=== PATIENT | male | born 1980 | race Caucasian/White ===

== ENCOUNTER 2020-11-25 08:05 | Outpatient (CLI) | payer OTHER, SELFPAY ==
--- NOTE | ~2020-11-25 | XR_ITS ---
EXAMINATION: XR wrist LT min 3V DATE: 11/25/2020 08:26 INDICATION: Osteoarthritis at the left wrist with prior internal fixation of an old fracture. TECHNIQUE: Posteroanterior, ulnar deviation, oblique, and lateral views of the left wrist were obtain ed. COMPARISON: 01/17/2015 FINDINGS: Old healed distal left radial fracture with volar T plate and screw fixation. Chronic nonunited ulnar styloid avulsion fracture. No acute fracture. Interval progression of now mild to moderate osteoarth ritis at the radioscaphoid articulation. No significant interval change in additional mild polyarticu lar osteoarthritis at the distal radioulnar, midcarpal, triscaphe and first carpal metacarpal joints. IMPRESSION: 1. 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 2. Volar T plate and screw fixation of an old healed distal left radial fracture. 3. Chronic nonunited ulnar styloid avulsion fracture. Reviewed, dictated and finalized at location A. IMPRESSION: 1. 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 2. Volar T plate and screw fixation of an old healed distal left radial fractur e. 3. Chronic nonunited ulnar styloid avulsion fracture.
== END 2020-11-25 08:06 | disposition home or self-care (01) ==
PROVIDERS: PCP Family Medicine; Visit Provider Plastic Surgery
DX: S52.612A Displaced fracture of left ulna styloid process, initial encounter for closed fracture (principal); M19.032 Primary osteoarthritis, left wrist
CPT/HCPCS: 73110

== ENCOUNTER 2024-08-14 00:43 | Day surgery (SDC) | payer OTHER, SELFPAY ==
[2024-07-28 15:08] VITALS: BMI 26.3
--- OUTSIDE RECORDS SUMMARY | 2024-08-14 00:49 | XMS_ITS | Encounter Summary ---
Author Organization [facility] Healthcare Address [address] [place] [address] Care Team Providers Care Superintendent Nonselling Name Role Phone Ricardo Lagos MD Primary Care Provider [phone] Encounter Details Date Type Department Care Team (Late st Contact Info) Description 01/30/2021 Telephone [facility] Radiology [address] [place] [address] Catarino Orlando MD [address] [place] [address] Social History Tobacco Use Types Packs/Day Years Used Date Smoking Tobacco: Never Assessed Sex and Gender Information Value Date Recorded Sex Assigned at Not on file Legal Sex Male 4:09 PM CDT Gender Identity Male 03/10/2021 4:43 PM CDT Sexual Orientation Straight 03/10/2021 4: 43 PM CDT documented as of this encounter Plan of Treatment Not on file documented as of this encounter Visit Diagnoses Not on filedocumented in this encounter Care Teams Superintendent Nonselling Relationship Specialty Start Date End Date Ricardo Lagos MD PCP - General 01/31/21 documented as of this encounter
--- OUTSIDE RECORDS SUMMARY | 2024-08-14 00:49 | XMS_ITS | Continuity of Care Document ---
Author Organization [facility] Address [address] [place] [address] Phone Care Team Providers Care Information Coordinator Name Role Phone Diana CORREA Simona Unavailable Unavailable Procedures Procedure Date Progress Note Therapeutic Activities Neuromuscular Re-Ed Therapeutic Exercise Therapeutic Activities Hot or Cold Pack Therapeutic Exercise Neuromuscular Re-Ed Therapeutic Activities Neuromuscular Re-Ed Therapeutic Exercise Hot or Cold Pack Therapeutic Exercise Neuromuscular Re-Ed Therapeutic Activities Therapeutic Exercise Neuromuscular Re-Ed Therapeutic Activities Hot or Cold Pack Hot or Cold Pack Manual Therapy Neuromuscular Re-Ed Therapeutic Activities Hot or Cold Pack Neuromuscular Re-Ed Therapeutic Activities Therapeutic Activities Neuromuscular Re-Ed Therapeutic Exercise Therapeutic Activities Neuromuscular Re-Ed Manual Therapy Therapeutic Activities Neuromuscular Re-Ed Manual Therapy Therapeutic Activities Neuromuscular Re-Ed Therapeutic Exercise Therapeutic Exercise Neuromuscular Re-Ed Therapeutic Activities Orthotic Mgmt And Training Subsequent En counter Neuromuscular Re-Ed Therapeutic Activities OT Evaluation Low Complexity Therapeutic Activities Wrist Immobilization Orthotic Mgmt and Training Therapeutic Exercise Advance Directives Directive Yes / No Effective Date File Name No Information Encounters Encounter Description Practice Location Reason(s) For Visit Diagnoses Date Provider Providers Copied on Encounter [facility], [place], [place], [id number], tel:[phone] [place] No Information Feb-2 2 Diana Jarvis. . [facility], [place], [place], [id number], tel:[phone] [place] No Information Feb-2 - 2 Diana Jarvis. . Referring Provider: Bilyl Taylor, [address], [place], [address]. tel:[phone] [facility] [address], [place], [place], [id number], [place] tel:[phone] [place] No Information Feb-0 2 Diana Jarvis. . Referring Provider: Billy Taylor, [address], [place], [address]. tel:[phone] [facility] [address], [place], [place], [id number], [place] tel:[phone] [place] No Information Feb-0 2- 2 Marjorie Lyn. . Referring Provider: Billy Taylor, [address], [place], [address]. tel:[phone] [facility], [place], [place], [id number], [place] tel:[phone] [place] No Information 2 Harig Simona. . Referring Provider: Constance Elena [address], [place], [address]. tel:[phone] [address], [place], [place], [id number], [place] tel:[phone] [place] No Information 2 Harig Simona. . Referring Provider: Billy Taylor, Constance [address], [place], [address]. tel:[phone] [address], [place], [place], [id number], [place] tel:[phone] [place] No Information 2 Harig Simona. . Referring Provider: Constance Elena [address], [place], [address]. tel:[phone], [place], [place], [id number], [place] tel:[phone] [place] No Information 2 Harig Simona. . Referring Provider: Billy Taylor, Constance [address], [place], [address]. tel:[phone] [address], [place], [place], [id number], [place] tel:[phone] [place] No Information 2 Harig Simona. . Referring Provider: Constance Elena [address], [place], [address]. tel:[phone] [address], [place], [place], [id number], [place] tel:[phone] [place] No Information 2 Harig Simona. . Referring Provider: Constance Elena [address], [place], [address]. tel:[phone] [facility], [address] [place] [address] [address], [place], [place], [id number], tel:[phone] [place] No Information 2 Harig Simona. . Referring Provider: Billy Taylor, Constance [address], [place], [address]. tel:[phone] [address] [address], [place], [id number], [place] tel:[phone] [place] No Information 2 Harig Simona. . Referring Provider: Constance Elena [address], [place], [address]. tel:[phone] [address] [address], [place], [place], [id number], tel:[phone] [place] No Information 1 Harig Simona. . Referring Provider: Billy Taylor, Constance [address], [place], [address]. tel:[phone] [address] [address], [place], [place], [address], tel:[phone] [place] No Information 1 Harig Simona. . Referring Provider: Constance Elena [address], [place], [address]. tel:[phone] [address] [address], [place], [place], [address], [place] tel:[phone] [place] No Information 1 Harig Simona. . Referring Provider: Constance Elena [address], [place], [address]. tel:[phone] Family History Family Member Type Diagnosis Age At Onset No Information Payers Payer name Insurance type Covered alliance party ID Per amado(s) [facility] [id number] Social History Type Description Quantity Date Captured Comments Sex Male Smoking Status No Information Chief Complaint And Reason For Visit No Information Reason For Referral Reason For Referral No Information Plan Of Treatment Date Type Action Status Goal Tobacco Cessation Counseling completed Goal Tobacco cessation counseling completed History Of Present Illness Encounter Date Complaint History Of Prese nt Illness No Information Functional Status Date Functional Assessmen t No Information Instructions Date Instruction Additional Infor mation Dietary needs education Related to Overweight Prescribed activity/exercise edu cation Related to Overweight Assessments Type Assessment Date No Information Patient Care Teams Name Effective Dates (start - stop) Status Members No Information
--- OUTSIDE RECORDS SUMMARY | 2024-08-14 00:49 | XMS_ITS | Referral Summary ---
Author Organization [facility] al Address [address] [place] [address] Care Team Providers Care Manager In Training Name Role Phone Ricardo Lagos MD Primary Care Provider [phone] Allergies No known active allergies Medications cetirizine (ZyrTEC) 10 mg capsuleIndicati ons:Seasonal Allergic Rhinitis Take 10 mg by mouth every morning Active POTASSIUM ORAL Take 1 Dose by mouth every morning Active Active Problems Problem Noted Date Diagnosed Date Retained orthopedic hardware 03/12/2021 Overview (03/12/2021): Added automatically from request for surgery [id number] Social History Tobacco Use Types Packs/Day Years Used Date Smoking Tobacco: Every Day Cigarettes Started: 1999 Smokeless Tobacco: Never AUDIT-C Answer Date Recorded Q1: How often do you have a drink containing alc ohol? Monthly or less 06/12/2021 Q2: How many drinks containi ng alcohol do you have on a typical day when you are drinking? 1 or 2 06/12/2021 Frequency of Binge Drinking Not on file 03/2021 Sex and Gender Information Value Date Recorded Sex Assigned at Not on file Legal Sex Male 4:09 PM CDT Gender Identity Male 03/10/2021 4:43 PM CDT Sexual Orientation Straight 03/10/2021 4: 43 PM CDT Last Filed Vital Signs Vital Sign Reading Time Taken Comments Blood Pressure 99/66 06/18/2021 12:20 PM BARBER OR BEAUTY SHOP MANAGER Pulse 58 06/18/2021 12:20 PM BARBER OR BEAUTY SHOP MANAGER Temperature 36.3 C (97.3 F) 06/18/2021 11:22 AM BARBER OR BEAUTY SHOP MANAGER Respiratory Rate 14 06/18/2021 12:20 PM BARBER OR BEAUTY SHOP MANAGER Oxygen Saturation 96% 06/18/2021 12:20 PM BARBER OR BEAUTY SHOP MANAGER Inhaled Oxygen Concentration - - Weight 95.3 kg (210 lb) 06/18/2021 7:51 AM BARBER OR BEAUTY SHOP MANAGER Height 190.5 cm (6' 3 ) 06/18/2021 7:51 AM BARBER OR BEAUTY SHOP MANAGER Body Mass Index 26.25 06/18/2021 7:51 AM BARBER OR BEAUTY SHOP MANAGER Plan of Treatment Not on file Medical Devices Explanted Type Area Equal Opportunity Counselor Device Identifier Shelf Expiration Date Model / Serial / Lot Screws Explanted:Qty: 9 on 06/18/2021 by Billy Taylor MD at [facility] Left: Wrist Other Plate Explanted:Qty: 1 on 06/18/2021 by Billy Taylor MD at [facility] Left: Wrist Other Insurance [facility] H[facility]/PPO Address: [facility] [address] [place] [address] [facility] CHO[facility] HMO/PPO Address: [facility] [address] [place] [address] Care Teams Manager In Training Relationship Specialty Start Date End Date Ricardo Lagos MD PCP - General 01/31/21
--- OUTSIDE RECORDS SUMMARY | 2024-08-14 00:49 | XMS_ITS | Clinical Summary ---
Author Organization [facility] Address [address] [place] [address] Care Team Providers Care Research And Development Technician Name Role Phone Álvaro Musa DO Primary Care Provider Social History Tobacco Use Types Packs/Day Years Used Date Smoking Tobacco: Never Assessed Sex and Gender Information Value Date Recorded Sex Assigned at Not on file Legal Sex Male 7:03 PM CDT Gender Identity Not on file Sexual Orientation Not on file Plan of Treatment Health Maintenance Due Date Last Done Comments Annual Physical 11/26/1982 Hepatitis C 11/26/1997 DTaP, Tdap and Td Vaccines ( 1 - Tdap) 11/26/1998 Hepatitis B Vaccines (1 of 3 - 19+ 3-dose series) 11/26/1998 COVID-19 Vaccine (2023-2 5 season) 2024 Influenza Adult (#1) 2024 HPV Vaccines Aged Out No longer eligi ble based on patient's age to complete this topic Meningococcal B Vaccine Aged Out No l onger eligible based on patient's age to complete this topic Meningococcal Vaccine Aged Out No manohar duncan eligible based on patient's age to complete this topic Pneumococcal Vaccine: Pediat rics (0 to 5 Years) and At-Risk Patients (6 to 64 Years) Aged Out No longer eligible b ased on patient's age to complete this topic RSV Immunizations Under 20 Months Aged Out No longer eligible based on patient's age to complete this topic Care Teams Research And Development Technician Relationship Specialty Start Date End Date Álvaro Musa DO PCP - General 11/25/11
--- OUTSIDE RECORDS SUMMARY | 2024-08-14 00:49 | XMS_ITS | Continuity of Care Document ---
Author Organization [facility] Address [address] [place] [address] Phone Care Team Providers Care Bookkeeper Name Role Phone Duke OD, Amy Unavailable Unavailable Allergies, Adverse Reactions, Alerts Substance Reaction Status Criticality No Known Allergies Active No Inform ation Medications Medication Instructions Dosage Effective Dates (start - stop) Status Comments prednisolone 1 %-gatifloxacin 0.5 %-bromfenac 0.075 % eye drops,suspen instill 1 drop in operative eye TID starting 4 hours after surgery and continue for the first 2 weeks - Active 4ml replace acetate with phosphate . Lasik OU 09/15/2019 Emergen-C Electro Mix 408 mg-100 mg-120 mg-2 mg oral powder packet - Active 99 mg Zyrtec 10 mg capsule - Active Procedures Procedure Date POSTOP FOLLOW-UP VISIT OFFICE/OUTPATIENT VISIT, NEW OPHTHALMIC BIOMETRY OPHTHALMIC BIOMETRY PHARMACY 2 EYES Advance Directives Directive Yes / No Effective Date File Name No Information Encounters Encounter Description Practice Location Reason(s) For Visit Diagnoses Date Provider Providers Copied on Encounter [facility], [id number] [place] [address] [address], [place], [place], [id number], [place] tel:[phone] OPH CONSULT EMILIANO REID Post-Op (chief complaint) Other specified postprocedural states November-0 5- 0 Duke Bradleyin. [address], [place], [address], [place]. tel:[phone] Referring Provider: Ricardo Weaver, [address], [place], [address]. tel:[phone] OFFICE/OUTPA TIENT VISIT, [facility], [address], [place], [place], [id number], [place] tel:[phone] OPH CONSULT EMILIANO REID lasik eval (chief complaint) Keratoconjunct sicca, not specified as Sjogren's, bilateralPoste rior subcapsular polar age-related cataract, bilateralSquam ous blepharitis right upper eyelidSquamous blepharitis right lower eyelidSquamous blepharitis left upper eyelidSquamous blepharitis left lower eyelidOther vitreous opacities, bilateral 0 Leland Mehta. [address] [facility], [place], [place], [id number] , [place]. tel:[phone] Referring Provider: Ricardo Weaver, [address], [place], [address]. tel:[phone] Family History Family Member Type Diagnosis Age At Onset Maternal grandmother Problem (finding) Macular degener ation Maternal grandmother Problem (finding) Diabetes mellit us Payers Payer name Insurance type Covered constitution party ID Authoriza tion(s) No Information Social History Type Description Quantity Date Captured Comments Sex Male Smoking Status No Information Chief Complaint And Reason For Visit From encounter dated '11/07/2019 09:40'. Post-Op (chief complaint). Description: Additional information: pt happy with vision. currently using AT 2-3x daily. pt states eyes do not feel dry but c/o watery eyes. Plan Of Treatment Date Type Action Status No Information History Of Present Illness Encounter Date Complaint History Of Prese nt Illness Post-Op Additional infor mation: pt happy with vision. currently using AT 2-3x daily. pt states eyes do not feel dry but c/o watery eyes. lasik eval The 38 year old male presents for evaluation of lasik eval in the right eye and left eye. It started about 1 year(s) ago. The symptom is constant. The condition is significant. The pt is wanting to see if he is a candidate for Lasik. SCL wearer, removed SCL last night. Tends to sleep in SCL, replaces every 2-3 weeks. Ref by Rakel Pink Instructions Date Instruction Additional Infor liseth Impression/Plan Related to Other specified postprocedural states Impression/Plan Related to Kerat oconjunct sicca, not specified as Sjogren's, bilateral Impression/Plan Related to Other vitreous opacities, bilateral Impression/Plan Related to Squam ous blepharitis right upper eyelid Impression/Plan Related to Squam ous blepharitis left lower eyelid Impression/Plan Related to Squam ous blepharitis left upper eyelid Impression/Plan Related to Squam ous blepharitis right lower eyelid Impression/Plan Related to Poste rior subcapsular polar age-related cataract, bilateral Assessments Type Assessment Date assessment Other specified postprocedural s vincenzo
--- OUTSIDE RECORDS SUMMARY | 2024-08-14 00:49 | XMS_ITS | Clinical Summary ---
Author Organization [facility] Address [address] [place] [address] Care Team Providers Care Seam Checker Name Role Phone Ricardo Lagos MD Primary Care Provider [phone] Allergies No known active allergies Medications cetirizine (ZyrTEC) 10 mg capsuleIndicati ons:Seasonal Allergic Rhinitis Take 10 mg by mouth every morning Active POTASSIUM ORAL Take 1 Dose by mouth every morning Active Active Problems Problem Noted Date Diagnosed Date Retained orthopedic hardware 03/12/2021 Overview (03/12/2021): Added automatically from request for surgery [id number] Surgical History Surgery Date Site/Laterality Comments WRIST FRACTURE SURGERY 07/05/2011 - 07/04/2012 Left x2 MENISCUS SURGERY 07/05/1994 - 07/04/1995 Right HEMORROIDECTOMY GANGLION CYST EXCISION multiple Social History Tobacco Use Types Packs/Day Years [...] Orientation Straight 03/10/2021 4: 43 PM CDT Obstetrics History Last Filed Vital Signs Vital Sign Reading Time Taken Comments Blood Pressure 99/66 06/18/2021 12:20 PM POULTRY BARN MANAGER Pulse 58 06/18/2021 12:20 PM POULTRY BARN MANAGER Temperature 36.3 C (97.3 F) 06/18/2021 11:22 AM POULTRY BARN MANAGER Respiratory Rate 14 06/18/2021 12:20 PM POULTRY BARN MANAGER Oxygen Saturation 96% 06/18/2021 12:20 PM POULTRY BARN MANAGER Inhaled Oxygen Concentration - - Weight 95.3 kg (210 lb) 06/18/2021 7:51 AM POULTRY BARN MANAGER Height 190.5 cm (6' 3 ) 06/18/2021 7:51 AM POULTRY BARN MANAGER Body Mass Index 26.25 06/18/2021 7:51 AM POULTRY BARN MANAGER Plan of Treatment Not on file Medical Devices Explanted Type Area Weight Reducing Technician Device Identifier Shelf Expiration Date Model / Serial / Lot Screws Explanted:Qty: 9 on 06/18/2021 by Billy Taylor MD at [facility] Left: Wrist Other Plate Explanted:Qty: 1 on 06/18/2021 by Billy Taylor MD at [facility] Medicine Left: Wrist Other Insurance [facility] CHOICE PLUS [facility] CHOICE PLUS Care Teams Seam Checker Relationship Specialty Start Date End Date Ricardo Lagos MD PCP - General 01/31/21
[2024-08-14 12:00] VITALS: BP 108/68; PULSE 88; RESP 20; TEMP 36.2; O2SAT 98; BMI 25.9
--- NOTE | 2024-08-14 12:12 | P.PNAN_ITS ---
Anes - Initial Pre Proc Eval Procedure: Operation Date: 08/14/24 13:30 Proposed Procedures p Colonoscopy - Jose Luis Peña MD Date/Time: 08/14/24 12:12 Surgeon: Jose Luis Peña MD Pre Op Diagnosis: Melena,Anal fissure,hemorrhoids Patient Data Age: 43 Gender: M Height: 1.91 m Weight: 94.1 kg Last Vital Signs Temp 97.1 F L 08/14/24 12:00 Pulse 88 08/14/24 12:00 Resp 20 08/14/24 12:00 BP 108/68 08/14/24 12:00 Pulse Ox 98 08/14/24 12:00 O2 Del Method Room Air 08/14/24 12:00 Allergies Allergy/AdvReac Type Severity Reaction Status Date / Time No Known Allergies Allergy Verified 08/14/24 12:07 Home Medications ?Medication ?Instructions ?Recorded ?Confirmed ?Type cetirizine 10 mg capsule (Wal-Zyr 10 mg PO DAILY PRN allergies 12/31/20 08/14/24 History (cetirizine)) Patient hx anesthesia problems: none Family hx anesthesia problems: none Results Review: All pre-operative results and documents have been reviewed as part of the pre- operative evaluation. [facility] Past Medical History Medical History Hematochezia Screening for prostate cancer Screening for lipid disorders Anal fissure BMI 28.0-28.9,adult Left forearm pain Surgical History Surgical History H/O wrist surgery 2011, left wrist ORIF History of surgical removal of ganglion cyst 1996 and 2008 Family History Family History Grandparent Hypertension Diabetes mellitus Social History Social History Smoking packs per day: 1.5 Smoking cigarettes per day: 30.0 Years smoked: 25 Smoking pack-years: 37.50 Smoking status: Current every day smoker Tobacco type: cigarettes Second hand tobacco smoke exposure: No Alcohol intake: current Alcohol use details: a few drinks a month Substance use: never Substance use type: does not use Living arrangements: with family Occupation/Education: occupation Additional occupation/education comments: [employer] Gender identity (if verbalized by the patient): Male Spiritual care concerns: No Anes - Eval Final PreProcedure Day of Procedure 08/14/24 12:12 Patient weight: overweight Lungs: normal air movement Airway: Mallampati scale class II Neurological: alert and oriented Last oral intake: >/= 8 hours ASA classification: II Emergent: no Anesthetic plan: proceed Anesthesia type and monitoring: general GIVS and standard monitoring Results Review: All pre-operative results and documents have been reviewed as part of the pre- operative evaluation. Smoker, 1.5 ppd for 15 years, smoked this am. Informed Consent: The patient's anesthetic plan and its attendant risks and benefits were discussed with the patient/family/POA. Questions were solicited and answers provided to the satisfaction of the patient/family/POA.
[2024-08-14] MEDS: LACTATED RINGERS 1,000 ML 150 ML IV CONT (12:18)
--- NOTE | 2024-08-14 12:53 | P.HP_ITS ---
History of Present Illness History of Present Illness Consent: Risks, benefits, and alternatives have been discussed and questions answered. Patient agrees to proceed with procedure. Chief complaint: Melena,Anal fissure,hemorrhoids Narrative: Dann Bojorquez is a 43 year old male with intermittent anal discomfort possible hemorrhoid, never had colonoscopy Review of Systems Review of Systems: All systems reviewed & are unremarkable except as noted in HPI and below PMFSH Past Medical History Medical History (Updated 08/14/24 @ 12:54 by Jose Luis Peña MD) Anal or rectal pain Hematochezia Screening for prostate cancer Screening for lipid disorders Anal fissure BMI 28.0-28.9,adult Left forearm pain Surgical History Surgical History H/O wrist surgery 2011, left wrist ORIF History of surgical removal of ganglion cyst 1996 and 2008 Family History Family History Grandparent Hypertension Diabetes mellitus Social History Social History Smoking packs per day: 1.5 Smoking cigarettes per day: 30.0 Years smoked: 25 Smoking pack-years: 37.50 Smoking status: Current every day smoker Tobacco type: cigarettes Second hand tobacco smoke exposure: No Alcohol intake: current Alcohol use details: a few drinks a month Substance use: never Substance use type: does not use Living arrangements: with family Occupation/Education: occupation 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 Gender identity (if verbalized by the patient): Male Spiritual care concerns: No Meds Home Medications and Allergies Home Medications ?Medication ?Instructions ?Recorded ?Confirmed ?Type cetirizine 10 mg capsule (Wal-Zyr 10 mg PO DAILY PRN allergies 12/31/20 08/14/24 History (cetirizine)) Allergies Allergy/AdvReac Type Severity Reaction Status Date / Time No Known Allergies Allergy Verified 08/14/24 12:07 Vital Signs Vital Signs - 24 hr 08/14/24 12:00 Temperature 97.1 F L Pulse Rate 88 Respiratory Rate 20 Blood Pressure 108/68 Pulse Oximetry 98 Oxygen Delivery Room Air Exam Const: General: comfortable and no acute distress HENMT: Face/Nose/Sinus: Normal nares present Eyes: General: appearance normal, both eyes and all related structures Neck: Neck: no JVD Resp: Auscultation: clear to auscultation bilaterally Cardio: Rate: regular rate Rhythm: regular rhythm GI: Inspection: non-distended GI Palp: Yes Soft to palpation Skin: General skin exam: normal color Neuro: General: gait normal Speech: normal speech Extrem: General: normal to inspection Psych: Mental Status: mental status grossly normal Assessment and Plan Assessment and plan (1) Anal or rectal pain: Code(s): K62.89 - Other specified diseases of anus and rectum Status: Acute Assessment and Plan: possible hemorrhoid colonoscopy
[2024-08-14 13:20] VITALS: BP 98/65; PULSE 81; RESP 25; TEMP 36.2; O2SAT 97
[2024-08-14 13:30] VITALS: BP 107/71; PULSE 74; RESP 22; O2SAT 100
[2024-08-14 13:40] VITALS: BP 111/74; PULSE 73; RESP 18; O2SAT 99
== END 2024-08-14 13:45 | disposition home or self-care (01) ==
PROVIDERS: PCP Family Medicine; Referring Provider Nurse Practitioner Family; Visit Provider Internal Medicine Gastroenterology
PROC: 0DJD8ZZ Inspection of Lower Intestinal Tract, Via Natural or Artificial Opening Endoscopic (ICD-10-PCS; CPT 45378; principal; 2024-08-14 13:30)
DX: D12.5 Benign neoplasm of sigmoid colon (principal); K63.5 Polyp of colon; D12.8 Benign neoplasm of rectum; K64.8 Other hemorrhoids; K62.89 Other specified diseases of anus and rectum; F17.210 Nicotine dependence, cigarettes, uncomplicated; Z98.890 Other specified postprocedural states; Z87.19 Personal history of other diseases of the digestive system
CPT/HCPCS: 45385; 88305; J2003; J2704; J7120